=== PATIENT | male | born 1985 | race Caucasian/White ===

== ENCOUNTER 2022-09-03 17:31 | Emergency (ER) | payer SELFPAY ==
[~2022-09-03] VITALS: Ht 185.4 cm; Wt 118.1 kg
[2022-09-03 17:58] VITALS: BP 123/78
[2022-09-03] MEDS ORDERED: cefTRIAXone 500 MG in LIDOCAINE MPF 1% 1 ML IM ONE (18:25)
[2022-09-03] MEDS ORDERED: cefTRIAXone 500 MG VIAL ONE (18:30)
[2022-09-03 18:31] LABS: APPEARANCE,URINE CLEAR (CLEAR); BILIRUBIN,URINE NEGATIVE (NEGATIVE); BLOOD, URINE NEGATIVE (NEGATIVE); COLOR,URINE YELLOW (YELLOW); LEUKOCYTE ESTERASE ,URINE 2+ (NEGATIVE); NITRITE, URINE NEGATIVE (NEGATIVE); UGLUCOSE NEGATIVE (NEGATIVE)
[2022-09-03] MEDS ORDERED: LIDOCAINE MPF 1% 5 ML ONE (18:31)
[2022-09-03] MEDS ORDERED: DOXY-690 PO (18:38)
[2022-09-03 18:48] VITALS: BP 123/78
--- NOTE | 2022-09-03 18:48 | NUR ---
Patient discharged with v/s stable. Written and verbal after care instructions given and explained. Patient alert, oriented and verbalized understanding of instructions. Ambulatory with steady gait. All questions addressed prior to discharge. ID band removed. Patient advised to follow up with PMD. Rx of VIBRAMYCIN given. Patient educated on indication of medication including possible reaction and side effects. Opportunity to ask questions provided and answered.
[2022-09-03 18:54] LABS: RBC,URINE 0-5 /HPF (0-5)
--- NOTE | 2022-09-04 16:21 | NUR ---
PT MADE AWARE OF TEST RESULTS AT THIS TIME
== END 2022-09-03 18:48 | disposition home or self-care (01) ==
LOC: MED 17:31
DX: A74.9 Chlamydial infection, unspecified (principal); A54.9 Gonococcal infection, unspecified; Z11.3 Encounter for screening for infections with a predominantly sexual mode of transmission; Z79.899 Other long term (current) drug therapy
CPT/HCPCS: 81001; 87086; 87491; 96372; 99283; J0696; J2001